=== PATIENT | male | born 1965 | race Caucasian/White ===

== ENCOUNTER 2019-06-12 08:41 | Inpatient (IN) ==
[2019-06-12] MEDS ORDERED: APRESOLINE IV ONE (09:02)
[2019-06-12] MEDS ORDERED: CATAPRES PO ONE (09:02)
--- NOTE | 2019-06-12 09:09 | PROVIDER DOCUMENTATION ---
HPI-Neurological Disorder - General Chief Complaint: Numbness Stated Complaint: LEFT SIDE NUMBNESS Time Seen by Provider: 06/12/19 08:53 Source: patient, old records Allergies/Adverse Reactions: Patient Allergies Allergy/AdvReac Type Severity Reaction Status Date / Time acetaminophen Allergy NAUSEA/VOMI Verified 06/12/19 09:03 [From Darvocet-N] TING amoxicillin Allergy NAUSEA/VOMI Verified 06/12/19 09:03 TING ciprofloxacin [From Cipro] Allergy NAUSEA/VOMI Verified 06/12/19 09:03 TING morphine Allergy NAUSEA/VOMI Verified 06/12/19 09:03 TING propoxyphene Allergy NAUSEA/VOMI Verified 06/12/19 09:03 [From Darvocet-N] TING tramadol [From Ultram] Allergy NAUSEA/VOMI Verified 06/12/19 09:03 TING Home Medications: Home Medication List Medication Instructions Recorded Confirmed Last Taken Type Amitriptyline [Elavil] 100 mg PO DAILY 06/12/19 06/12/19 06/11/19 History Aspirin 325 mg PO DAILY 06/12/19 06/12/19 06/11/19 History Atorvastatin Calcium [Lipitor] 80 mg PO DAILY 06/12/19 06/12/19 06/11/19 History Buspirone [Buspar] 10 mg PO TID 06/12/19 06/12/19 06/11/19 History Clopidogrel [Plavix] 75 mg PO DAILY 06/12/19 06/12/19 06/11/19 History Esomeprazole [Nexium] 40 mg PO DAILY 06/12/19 06/12/19 06/11/19 History Gabapentin [Neurontin] 600 mg PO TID 06/12/19 06/12/19 06/11/19 History Ipratropium/Albuterol INH 2 puff PO PRN PRN 06/12/19 06/12/19 06/11/19 History [Combivent Respimat Inhaler] Lisinopril 10 mg PO DAILY 06/12/19 06/12/19 06/11/19 History Metformin [Glucophage] 500 mg PO DAILY 06/12/19 06/12/19 06/11/19 History Ondansetron HCl [Zofran] 4 mg PO PRN PRN 06/12/19 06/12/19 06/11/19 History Oxycodone HCl/Acetaminophen 1 ea PO Q8H PRN PRN 06/12/19 06/12/19 06/11/19 History [Percocet 10-325 mg Tablet] Prednisone 20 mg PO DAILY 06/12/19 06/12/19 06/11/19 History Tamsulosin [Flomax] 0.4 mg PO DAILY 06/12/19 06/12/19 06/11/19 History - History of Present Illness-Neuro Nature of Presenting Problem: pt w/ reported PMHx of "several strokes," hx of mult cardiac and LE stents, prior carotid endart'x, DM, cont'd tobacco use, HBP, states he has been having numbness in L face, arm, leg for several days. he reports no clear new weakness, but several cognitive residua from his prior stroke(s). He has a neurologist in [facility], says his PCP recently moved from [facility], so he came here (he lives in [place]). States his last admit was to [place]. 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 Review of Systems - Adult - REVIEW OF SYSTEMS - ADULT Constitutional: reports: no symptoms reported Eyes: reports: no symptoms reported Ears, Nose, Mouth & Throat: reports: no symptoms reported Cardiovascular: reports: no symptoms reported Respiratory: reports: no symptoms reported Gastrointestinal: reports: no symptoms reported Genitourinary: reports: no symptoms reported Musculoskeletal: reports: no symptoms reported Integumentary: reports: no symptoms reported Neurological: reports: see HPI Psychiatric: reports: no symptoms reported Endocrine: reports: no symptoms reported Hematologic/Lymphatic: reports: no symptoms reported Allergic/Immunologic: reports: no symptoms reported All Other Systems: Reviewed and Negative Past History - Adult - PAST MEDICAL HISTORY-ADULT Review of Records: reports: Old Records Reviewed Physical Exam- Neurological - Physical Exam-Neuro Initial Vital Signs Reviewed: Yes (BP noted) General Appearance: alert, no apparent distress Eye Exam: bilateral eye: normal inspection, PERRL HENMT: other (lesion in L midface as noted above) Head Injury: no evidence of injury Neck: supple Respiratory: lungs clear, no respiratory distress Cardiovascular: normal peripheral pulses, regular rate, rhythm Abdominal Exam: non tender, soft Peripheral Pulses: radial (R): 2+, radial (L): 2+ Extremity: normal range of motion baggage checker Exam: normal hearing, normal speech, PERRL Motor/Sensory: no motor deficit Neurologic: abnormal baggage checker II-XII (?? flattening of L nasolabial fold, but exam distorted by sq cell CA lesion, prior rad tx.) Integumentary: negative: rash Psych/Mental Status: normal mood/affect, normal thought content - Glascow Coma Scale Best Eye Response: (4) open spontaneously Best Verbal Response: (5) oriented Best Motor Response: (6) obeys commands Progress - PLAN OF CARE/RESULTS Progress/Plan/Lab Results: Vital Signs - 8 hr 06/12/19 08:44 06/12/19 10:36 06/12/19 11:56 Temperature 97.8 F Pulse Rate 88 76 80 Respiratory Rate 18 15 21 Blood Pressure 207/103 195/96 143/88 O2 Sat by Pulse Oximetry 98 96 93 L Laboratory Results - last 24 hr 06/12/19 06/12/19 06/12/19 09:09 09:09 09:50 WBC 9.38 RBC 4.52 L Hgb 14.4 Hct 41.0 L MCV 90.7 MCH 31.9 H MCHC 35.1 RDW Std Deviation 13.4 Plt Count 264 MPV 8.9 Immature Gran % (Auto) 0.4 Neut % (Auto) 60.7 Lymph % (Auto) 30.5 [place] % (Auto) 7.7 Eos % (Auto) 0.5 Baso % (Auto) 0.2 Immature Gran # (Auto) 0.04 Neut # (Auto) 5.69 Lymph # (Auto) 2.86 [place] # (Auto) 0.72 H Eos # (Auto) 0.05 Baso # (Auto) 0.02 Sodium 130 L Potassium 3.7 Chloride 91 L Carbon Dioxide 27 Anion Gap 12 BUN 21 Creatinine 1.1 Estimated GFR/1.73 m2 > 60 BUN/Creatinine Ratio 19 Glucose 398 H Calculated Osmolality 280 Calcium 9.2 Magnesium 2.0 Total Bilirubin < 0.15 L AST 11 ALT 25 Alkaline Phosphatase 152 H Total Protein 7.4 Albumin 4.6 Globulin 2.8 Albumin/Globulin Ratio 1.6 Urine Source CLEAN CATCH Urine Color YELLOW Urine Turbidity CLEAR Urine pH 6.5 Ur Specific [place] 1.023 Urine Protein NEGATIVE Ur Glucose (Stick) >1000 A Ur Ketones (Stick) NEGATIVE Urine Blood NEGATIVE Urine Nitrite NEGATIVE Urine Bilirubin NEGATIVE Urobilinogen Dipstick NORMAL Urine Leukocytes NEGATIVE Urine WBC (Auto) <10 Urine RBC (Auto) <10 U Epithel Cells (Auto) <10 Urine Bacteria (Auto) NEGATIVE Orders Category Date Time Status CT HEAD W/O CONTRAST [CT] Stat Exams 06/12/19 09:01 Completed CBC WITH DIFF [HEME] Stat Lab 06/12/19 09:09 Completed COMPREHENSIVE METABOLIC PANEL [CHEM] Stat Lab 06/12/19 09:09 Completed MAGNESIUM [CHEM] Stat Lab 06/12/19 09:09 Completed URINALYSIS W/POSS RFLX CULT [URINALYSIS] Stat Lab 06/12/19 09:50 Completed 0.9% Sodium Chloride Inj [Ns] 1,000 ml Med 06/12/19 13:11 Active IV 500 mls/hr Clonidine [Catapres] Med 06/12/19 09:02 Discontinued 0.2 mg PO NOW ONE Hydralazine [Apresoline] Med 06/12/19 09:02 Discontinued 10 mg IV NOW ONE Insulin Human Regular [Humulin R] Med 06/12/19 13:10 Discontinued 7 unit IV NOW ONE EKG [EKG] Stat Ther 06/12/19 09:15 Draft Result Diagrams: 06/12/19 09:09 06/12/19 09:09 - REASSESSMENT Reassessment #1 Time Reassessed: 13:18 Status: unchanged (CT appears to confirm recent thalamic CVA on R, consistent w/ current CC. BGL elevated (insulin ordered): will admit) - EKG 1 Time of EKG reading by physician:: 08:50 EKG Interpretation (*Must complete 3 of following elements*): Normal Rate: 85 Rhythm: nsr [place]: normal QRS: normal MD Interval: normal ST Wave: normal - CONSULTS/PCP/HOSPITALIST Notification #1 *Consult/PCP/Hospitalist*: Leslie Mujica) Consult Disposition: Admit Departure - Departure Date of Disposition Decision: 06/12/19 Time of Disposition Decision: 13:20 DIAGNOSIS: CVA (cerebral vascular accident) Disposition: ADMITTED INPATIENT 09 Certified Medical Emergency: Emergent Condition: Stable Referrals and Follow-Ups: Jayce Brody [Primary Care Provider] - - Critical Care Note This patient required my direct & personal management of CC.: No Attestation - Physician/ RAND Attestation The physician spent face to face time with patient:: Yes Advanced Practice Provider documentation review:: Supervising physician onsite and consulted in the evaluation and care of this patient. The physician did have a face to face encounter with the patient.
--- NOTE | 2019-06-12 09:17 | EKG Report ---
Test Performed on : 06/12/2019 08:50:33 AM Test Reason : gi bleed Blood Pressure : / mmHG Vent. Rate : 085 BPM Atrial Rate : 085 BPM P-R Int : 122 ms QRS Dur : 096 ms QT Int : 366 ms P-R-T Axes : 069 081 053 degrees QTc Int : 435 ms Normal sinus rhythm. Normal ECG No previous ECGs available Unconfirmed Result
[2019-06-12 09:21] LABS: BASO# 0.02 X1000 (0.0-0.2); BASO% 0.2 % (0.0-0.8); EOS# 0.05 X1000 (0.0-0.7); EOS% 0.5 % (0.0-10.0); HEMOGLOBIN 14.4 g/dL (14.0-18.0); IMM GRAN# 0.04 X1000 (0.0-0.04); IMM GRAN% 0.4 % (0.0-0.5); LYMPH# 2.86 X1000 (1.2-3.4); LYMPH% 30.5 % (20.5-51.1); MCH 31.9 PG (27-31); MCHC 35.1 g/dL (33-37); MCV 90.7 FL (81-99); MONO# 0.72 X1000 (0.11-0.59); MONO% 7.7 % (1.7-9.3); MPV 8.9 FL (7.4-10.4); NEUT# 5.69 X1000 (1.4-6.5); NEUT% 60.7 % (42.2-75.2); PLT 264 X1000 (130-400); RBC 4.52 XMIL (4.7-6.1); RDW 13.4 % (11.5-14.5); WBC 9.38 X1000 (4.8-10.8)
--- NOTE | 2019-06-12 09:23 | Diag Imaging Result Doc PS360 ---
EXAM: CT HEAD W/O CONTRAST INDICATION: Left side numbness for several days TECHNIQUE: This exam was performed using automated exposure control, adjustment of mA or kV according to patient size, and/or use of iterative reconstruction technique. COMPARISON: None. FINDINGS: There is a small oval focus of low density involving the thalamus on the right. This is suspicious for an acute to subacute lacunar infarct, which would be consistent with the patient's symptomatology. No other acute infarct is appreciated. There is no discrete intracranial mass, mass effect, or intracranial hemorrhage. The surrounding soft tissues and bony structures are essentially unremarkable. IMPRESSION: Low attenuating focus involving the thalamus on the right that is suspicious for an acute to subacute lacunar infarct. Electronically signed by Yovn Jain 06/12/2019 9:20 AM
[2019-06-12 09:39] LABS: AGAP 12; ALB/GLOB RATIO 1.6; ALBUMIN 4.6 g/dL (3.5-5.0); ALKALINE PHOSPHATASE 152 U/L (32-122); BUN 21 mg/dL (8-22); CALCIUM 9.2 mg/dL (8.8-10.2); CHLORIDE 91 mmol/L (98-107); COSMO 280; CREATININE 1.1 mg/dL (0.7-1.2); ESTIMATED GFR > 60; GLUCOSE 398 mg/dL (70-104); GOT 11 U/L (10-34); GPT 25 U/L (10-44); POTASSIUM 3.7 mmol/L (3.5-5.1); SODIUM 130 mmol/L (136-145); TCO2 27 mmol/L (25-35); TOTAL BILIRUBIN < 0.15 mg/dL (0.20-1.00); TOTAL PROTEIN 7.4 g/dL (6.3-8.3)
[2019-06-12 10:08] LABS: URINE SOURCE CLEAN CATCH
[2019-06-12 10:12] LABS: BILIRUBIN URINE NEGATIVE (NEGATIVE); BLOOD URINE NEGATIVE (NEGATIVE); COLOR YELLOW; GLUCOSE URINE >1000 mg/dL (NEGATIVE); KETONE URINE NEGATIVE (NEGATIVE); LEUKOCYTES URINE NEGATIVE (NEGATIVE); NITRITE URINE NEGATIVE (NEGATIVE); PH URINE 6.5; PROTEIN URINE NEGATIVE (NEGATIVE); SP GRAVITY URINE 1.023; TURBIDITY URINE CLEAR (CLEAR); UROBILINOGEN URINE NORMAL (NORMAL)
[2019-06-12 10:13] LABS: UR EPITHELIAL CELLS <10 /HPF (<10); URINE BACTERIA NEGATIVE /HPF; URINE RBC <10 /HPF (<10); URINE WBC <10 /HPF (<10)
[2019-06-12] MEDS ORDERED: HUMULIN R IV ONE (13:10)
[2019-06-12] MEDS ORDERED: NS 1,000 ML IV ONE (13:11)
--- NOTE | 2019-06-12 14:53 | HISTORY AND PHYSICAL ---
PRIMARY CARE PHYSICIAN: Dr. Jayce Brody. CHIEF COMPLAINT: Left-sided weakness and numbness to his face and arms for the last couple of days that progressively worsened. States he has had a history of three CVAs in the past. HISTORY OF PRESENTING ILLNESS: This is a 54-year-old male who presents to [facility] with complaints of left-sided weakness, numbness, and tingling to the left side over the past couple of days that progressively worsened. States that he has a history of three CVAs, six MIs, diabetes type 2, and hypertension. He continues to smoke. He is currently down to half a pack of cigarettes a day and states that he was around four packs of cigarettes a day at one point. He states that his brother passed here recently at the age of 53 with a CVA and his CT of the head today showed a low attenuating focus involving the thalamus of the right that is suspicious for an acute to subacute lacunar infarct. So, he will be admitted for further evaluation and treatment. PAST MEDICAL HISTORY: Diabetes type 2, hypertension, NE x6, three CVAs, hyperlipidemia, bullous emphysema, and COPD. PAST SURGICAL HISTORY: Left carotid endarterectomy, cholecystectomy, right total knee arthroscopy, left upper lobectomy, heart stent placement x2. FAMILY HISTORY: His brother passed recently of a CVA. SOCIAL HISTORY: He currently lives with friends. Smokes half a pack of cigarettes a day but at one point was smoking up to four packs of cigarettes a day and has smoked since he was [age] years old. Denies any alcohol or illicit drug use. ALLERGIES: Acetaminophen, amoxicillin, Cipro, morphine, propoxyphene, and tramadol. HOME MEDICATIONS: Elavil 100 mg p.o. daily, aspirin 325 mg p.o. daily, atorvastatin 80 mg p.o. daily, BuSpar 10 mg p.o. t.i.d., Plavix 75 mg p.o. daily, Nexium 40 mg p.o. daily, gabapentin 600 mg p.o. t.i.d., Combivent inhaler two puffs p.r.n., lisinopril 10 mg p.o. daily, metformin 500 mg p.o. daily, ondansetron 4 mg p.o. p.r.n., Percocet 10 one p.o. q eight hours p.r.n., prednisone 20 mg p.o. daily, and Flomax 0.4 mg p.o. daily. LABORATORY DATA: White blood cell count of 9.38, hemoglobin 14.4, hematocrit 41.0, and platelets 264,000. Sodium of 130, potassium 3.7, chloride 91, CO2 27, BUN of 21, creatinine 1.1, and glucose 398. Magnesium of 2. Urinalysis was negative. IMAGING: CT of the head showed a low attenuating focus involving the thalamus on the right that is suspicious for an acute to subacute lacunar infarct. EKG showed normal sinus rhythm. REVIEW OF SYSTEMS: He denied any fever, chills, blurred vision, dizziness, chest pain, coughing, or shortness of breath. He had left-sided weakness. Denied any abdominal pain, constipation, diarrhea, burning or hurting with urination. PHYSICAL EXAMINATION: VITAL SIGNS: On arrival, he had a temperature of 97.8, pulse 88, respirations 18, blood pressure 207/103, his blood pressure was down at one point to 143/88, but has now come back up to 191/95. We are going to allow for some permissive hypertension, but we do not want him to be above 190 systolic or greater than 100 diastolic. HEENT: Normocephalic, atraumatic. Normal ENT inspection. Oropharynx and nares are clear. EYES: Pupils are equal, round, and reactive to light and accommodation. Extraocular movements are intact. NECK: Normal inspection. Normal range of motion. LUNGS: Clear to auscultation bilaterally with equal lung expansion and chest wall movement. HEART: Regular rate and rhythm. No murmurs, rubs, or gallops. ABDOMEN: Soft. Nontender. Nondistended. Bowel sounds are present x4 quadrants. MUSCULOSKELETAL: He has 5/5 strength x4 extremities. NEUROLOGICAL: The cranial nerves II-XII appear grossly intact with no deficits noted at this time. ASSESSMENT: 1. Acute cerebrovascular accident. 2. Hyponatremia. 3. Malignant hypertension. 4. Diabetes type 2. 5. Tobacco abuse. PLAN: He will be admitted to the medical unit and placed on telemetry. Placed on a diabetic diet. Neuro checks per protocol. Patterned blood sugars with sliding scale insulin. Check a hemoglobin A1c. Place on a diabetic diet. SCDs for DVT prophylaxis. Place on normal saline at 75 mL an hour. Continue home medications as previously identified. Will check and echocardiogram and a carotid Doppler today. Recheck a CBC, CMP, and lipid profile in the a.m. Dictated by ASHLI Pack for Servando Contreras MD cc: ASHLI Pack MD Neil Yeager, MD
[2019-06-12] MEDS ORDERED: ZOFRAN IV PRN (15:06)
[2019-06-12] MEDS ORDERED: APRESOLINE IV PRN (15:06)
[2019-06-12] MEDS ORDERED: COMBIVENT RESPIMAT INHALER INH PRN (15:06)
[2019-06-12 15:31] LABS: HEMOGLOBIN A1C 8.3 % (4.8-6.0)
--- NOTE | 2019-06-12 16:25 | ECHO REPORT ---
ORDER DATE: 06/12/2019 INTERPRETING PHYSICIAN: Graeme Ortiz MD. MEASUREMENTS: 1. Interventricular septum 1.2. 2. Left ventricular posterior wall 1.0. 3. Diastolic diameter 5.0. 4. Left atrium 2.9. 5. Aorta 3.8. SUMMARY OF THE 2-DIMENSIONAL FINDINGS: 1. Mitral valve was normal. 2. Tricuspid valve was normal. 3. Aortic valve leaflets were trileaflet. 4. Normal left ventricular cavity size. Estimated ejection fraction of 55 to 60 percent. 5. There is mild tricuspid regurgitation. Peak velocity across the tricuspid valve was less than 2 m/sec. 6. Mild mitral regurgitation. Peak velocity across the aortic valve less than 2 m/sec. By Doppler studies, there is no aortic stenosis or regurgitation. 7. There is no pericardial effusion, or obvious intracardiac mass or thrombus seen. cc: MD Leslie Mcnamara CRNP
[2019-06-12] MEDS: PERCOCET-10 PO PRN (16:26)
[2019-06-12] MEDS: NS 1,000 ML IV SCH (16:35)
[2019-06-12] MEDS: BUSPAR PO SCH (17:19)
[2019-06-12] MEDS: NEURONTIN PO SCH (17:19)
[2019-06-12] MEDS: HUMALOG SUBQ SCH ×2 (17:19→21:22)
[2019-06-12] MEDS ORDERED: LANTUS INSULIN SUBQ ONE (18:32)
--- NOTE | 2019-06-12 19:04 | HISTORY AND PHYSICAL ---
ADDENDUM: HISTORY OF PRESENT ILLNESS: I have seen and examined Mr. Han today. Mr. Han presented to the emergency department because of an acute onset of left-sided numbness. He has had a stroke before, over a year ago, on the right side. He normally follows up with Dr. Matthews and Dr. Brody as his PCP. Upon presenting to the emergency department, he was evaluated. A CT scan of the head has shown low-attenuating focus involving the thalamus on the right that is suspicious for [id number] lacunar infarct. The patient was also evaluated and was found to be hypertensive with a presenting blood pressure of 207/113. His glucose was also ridiculously elevated with a serum glucose of 398. PHYSICAL EXAMINATION: His physical exam is positive for some ulceration over the lateral aspect of the left nasal naris from a basal cell carcinoma that he normally follows up with his skin doctors in [place]. He also has some sensation alteration in the entire left side, but he has normal power in both extremities equally. ASSESSMENT/PLAN: 1. Acute left-sided hypoesthesia with paresthesias with a CT scan of the head suggesting of a right thalamus [id number] infarct. We are going to observe Mr. Han overnight. He was already on dual anti-platelet therapy from home, so we will continue with that, and also continue with his statin and control his other comorbidities. 2. Uncontrolled diabetes mellitus with presenting A1c of 8.3. For now, will control blood glucose with insulin regimen. 3. Uncontrolled hypertension. The patient refers to have had an episode on Saturday, which is about 3 days ago. So, I think it is now reasonable to start adequately controlling his blood pressure. We have started him back on his home medication. Blood pressure is now down to 143/88. 4. Mild clinical volume depletion. We will continue with IV fluids. 5. History of multiple cerebrovascular accidents. 6. Tobacco use and abuse. 7. Recent basal cell carcinoma of the skin on the face. Please refer to the details of the history and physical in the chart, which has been dictated by the EMISSIONS INSPECTOR. cc: Servando Contreras MD
[2019-06-13] MEDS: PERCOCET-10 PO PRN ×2 (00:48→08:25)
[2019-06-13] MEDS: HUMALOG SUBQ SCH ×4 (06:31→13:29)
[2019-06-13] MEDS: NS 1,000 ML IV SCH (06:31)
[2019-06-13 06:37] LABS: BASO# 0.03 X1000 (0.0-0.2); BASO% 0.3 % (0.0-0.8); EOS# 0.12 X1000 (0.0-0.7); HEMATOCRIT 40.7 % (42.0-52.0); HEMOGLOBIN 14.1 g/dL (14.0-18.0); IMM GRAN# 0.05 X1000 (0.0-0.04); IMM GRAN% 0.4 % (0.0-0.5); LYMPH# 2.71 X1000 (1.2-3.4); MCH 31.8 PG (27-31); MCHC 34.6 g/dL (33-37); MCV 91.9 FL (81-99); MONO# 0.99 X1000 (0.11-0.59); MONO% 8.4 % (1.7-9.3); MPV 9.3 FL (7.4-10.4); NEUT% 66.9 % (42.2-75.2); PLT 266 X1000 (130-400); RBC 4.43 XMIL (4.7-6.1); RDW 13.4 % (11.5-14.5)
[2019-06-13 07:29] LABS: AGAP 10; BUN 16 mg/dL (8-22); CALCIUM 8.2 mg/dL (8.8-10.2); CHLORIDE 102 mmol/L (98-107); COSMO 281; CREATININE 1.1 mg/dL (0.7-1.2); ESTIMATED GFR > 60; GLUCOSE 138 mg/dL (70-104); POTASSIUM 4.5 mmol/L (3.5-5.1); SODIUM 139 mmol/L (136-145); TCO2 27 mmol/L (25-35)
[2019-06-13] MEDS: BUSPAR PO SCH ×2 (08:25→13:29)
[2019-06-13] MEDS: NEURONTIN PO SCH ×2 (08:25→13:29)
[2019-06-13] MEDS ORDERED: ASPIRIN PO SCH (09:00)
[2019-06-13] MEDS ORDERED: PREDNISONE PO SCH (09:00)
[2019-06-13] MEDS ORDERED: LANTUS INSULIN SUBQ SCH (09:00)
[2019-06-13] MEDS ORDERED: NORVASC PO SCH (09:00)
[2019-06-13] MEDS ORDERED: PLAVIX PO SCH (09:00)
[2019-06-13] MEDS ORDERED: GLUCOPHAGE PO SCH (09:00)
[2019-06-13] MEDS ORDERED: LIPITOR PO SCH (09:00)
[2019-06-13] MEDS ORDERED: FLOMAX PO SCH (09:00)
[2019-06-13] MEDS ORDERED: PRINIVIL PO SCH (09:00)
[2019-06-13] MEDS ORDERED: NEXIUM PO SCH (09:00)
[2019-06-13] MEDS ORDERED: ELAVIL PO SCH (09:00)
[2019-06-13 12:46] VITALS: BP 134/64
--- NOTE | 2019-06-13 16:24 | DISCHARGE SUMMARY ---
ADMISSION DATE: 06/12/2019 DISCHARGE DATE: 06/13/2019 DISPOSITION: Home. FOLLOW-UP: 1. Dr. Brody. 2. Dr. Matthews. CONSULTATION DURING THIS ADMISSION: None. IMAGING STUDIES OF SIGNIFICANCE: CT scan of the head did show suspicious for acute to subacute lacunar infarct. An echocardiogram showed ejection fraction of 55 to 60% with no wall motion abnormality. ADMISSION DIAGNOSES: 1. Suspected cerebrovascular accident. 2. Malignant hypertension. 3. Hyponatremia. 4. Tobacco use. DIAGNOSES AT THE TIME OF DISCHARGE: 1. Acute left-sided hypoesthesia with paresthesia concerning for acute to subacute infarct. CT scan suggests a right thalamus infarct. 2. Uncontrolled diabetes mellitus with presenting A1c of 8.3. 3. Uncontrolled hypertension. 4. Mild clinical volume depletion. 5. History of multiple cerebrovascular accidents in the past. 6. Tobacco use and abuse. 7. Recent basal cell carcinoma of the face. DISCHARGE MEDICATIONS: 1. Aspirin 325 p.o. daily. 2. Atorvastatin 80 mg p.o. daily. 3. Clopidogrel 75 mg p.o. daily. 4. Nexium 40 mg p.o. daily. 5. Gabapentin 600 mg 3 times per day. 6. Lisinopril 10 mg p.o. daily. 7. Metformin 500 mg p.o. daily. 8. Prednisone 20 mg p.o. daily. 9. Amitriptyline. 10. Buspirone 10 mg daily. 11. Lisinopril 10 mg p.o. daily. 12. Ipratropium inhaler. 13. Gabapentin 600 three times per day. PRESENTING COMPLAINT: Left-sided weakness and numbness. HISTORY OF PRESENTING COMPLAINT: Mr. Han is a 54-year-old male who has multiple CVAs and about 6 PR's. He is also diabetic, hypertensive. Came to the emergency department because of left-sided weakness and some numbness and paresthesia. Upon presenting, he was evaluated. A CT scan was done which showed low attenuation focus involving the right thalamus suspicious for acute/subacute lacunar infarct. Mr. Han was admitted for further medical care. HOSPITAL COURSE: Mr. Han referred that the episode actually started about 3 days ago, which will make it subacute, and that he has been feeling a lot better. This morning he said he has no deficit at all on the left side. He feels remarkably well and that he needs to be discharged or he will go home AMA. From medical standpoint I think he is on all medicines that he needs. He normally follows up with Dr. Matthews, and because his neurological deficit has completely resolved, we think he will be okay being discharged and for him to be followed up with his neurologist and his primary care. We have given him a form to do an MRI of the brain with and without contrast and follow up the result with his primary care and with his neurologist, Dr. Matthews. Mr. Han was also found to have an A1c of 8.3. He was only on metformin, and I have added Januvia to help control the glucose better. His blood pressures were also ridiculously high when he came in. It has been well controlled during the hospital course. We have added amlodipine to his medications. This morning, he refers to feel better. His blood pressure is 134/64, pulse of 64, respiration 18, temperature 98.6 degrees. He denies any new neurological deficit. The left side deficit is completely gone. We think he is stable for discharge, and he will follow up with his primary care and with his neurologist. He has been given a form to do an outpatient MRI. All the discharge instructions have been discussed with him. We stressed the utmost need and importance for tobacco cessation at this point. Time spent for discharge is 35 minutes. cc: MD Jayce Owen MD Anjaneyulu Alapati
--- NOTE | 2019-06-14 08:11 | Carotid Study ---
DATE: 06/12/2019 REQUESTING PROVIDER: Tree. CURTAIN SUPERVISOR: Phoebe. INDICATIONS: 1. CVA. 2. History of left-sided carotid endarterectomy. EQUIPMENT: [employer] Vivid E9 ultrasound system with a 9 L-D transducer. FINDINGS: A complete diagram of ultrasound images can be seen in patient's medical record. The peak systolic velocity noted on the right side is in the mid internal and is noted to be 74. The peak systolic velocity noted on the left side is noted in the distal internal and is noted to be 64. The calculated internal common ratio on the right is 1.04 and left 0.75. Calculated stenosis on the right is 0-39% and the left 0-39%. There appears to be a soft plaque noted in the left carotid bulb and atherosclerosis noted in the bilateral carotid arteries but this does not produce a hemodynamically significant flow-limiting stenosis noted to bilateral carotid arteries. Both vertebral arteries were antegrade flow. INTERPRETATION: By strict velocity criteria, no hemodynamically significant flow-limiting stenosis noted. cc: MD Leslie Mariscal CRNP
== END 2019-06-13 15:21 | disposition home or self-care (01) | DRG 65 ==
LOC: ED 08:41 → 1N 14:27
PROVIDERS: ATTEND Internal Medicine